=== PATIENT | female | born 1955 | race Caucasian/White ===

== ENCOUNTER → 2017-04-22 | Outpatient (CLI) | payer BC ==
--- NOTE | 2017-04-26 15:24 | US ---
EXAM DESCRIPTION: Breast,Bilateral: Ultrasound CLINICAL HISTORY: 61 yearsFemaleBREAST MASS. Painful on the right. Bilateral visible chest wall surgical changes after removal of the implants. COMPARISON: Digital 3-D/2-D diagnostic mammography, bilateral breasts this visit. TECHNIQUE: Transcutaneous scanning of the bilateral breasts utilizing two-dimensional and Doppler modes. Scanning performed by the non emergency services ambulance driver and Dr. Koenig. FINDINGS: In the right breast, is a oval-shaped elongated hypoechoic region of tissue with scalloped and peaked borders. Corresponds to region of palpable density heterogeneous signal in this tissue which is abutting the posterior wall, inferior to the posterior nipple line, and demonstrates posterior mixed echoes. Parallel orientation and minimally vascular. Overall dimensions 4.8 x 9 mm. No discrete cysts or calcifications. Similar appearing tissue at the 600 clock position of the left breast. As in the right breast, heterogeneous hypoechoic tissue with scalloped and peaked borders, parallel orientation, mixed posterior acoustic features and abutting the chest wall. Minimally vascular. No discrete cysts or calcifications. IMPRESSION: 1. Bi-Rads Category 3: Probably Benign Findings. 2. Please refer to bilateral 2-D and 3-D diagnostic breast mammographic examination and report on this visit. The FINDINGS and the follow-up plan were reviewed in person with the patient after the examination. Written communication explaining the IMPRESSION and follow-up will be mailed to the patient and referring care provider. Electronically signed by: Esteban Koenig MD 04/26/2017 3:23 PM [employer] [employer]
--- NOTE | 2017-04-26 15:25 | MAM ---
EXAM DESCRIPTION: 3D Diagnostic, Bilateral: Digital Mammography CLINICAL HISTORY: 61 yearsFemaleBREAST MASS . Painful mass in the right breast. Palpable. Ruptured breast implants 04/23/2016. No replacement. No family history of breast cancer. Postmenopausal. Has taken HRT 5 or more years ago.. COMPARISON: 2-D digital screening bilateral studies with implants, 02/11/2009.. No prior reports are available. TECHNIQUE: Bilateral CC LM MLO projection full-field images, 3-D tomosynthesis digital mammographic technique. Also bilateral synthesized CC MLO LM full-field images. CAD not utilized. 2-D digital spot compression MLO and CC projection posterior superior right breast. CAD utilized. FINDINGS: The breast parenchymal density pattern is: Heterogeneously dense breast tissue, which may obscure small masses. No skin thickening or nipple retraction solitary microcalcifications bilaterally. Right axillary lymph node. Skin marker on the undersurface of the retroareolar right breast at the 6:00 position. Large density with ill-defined border posterior third of the right breast, more inferior to the posterior nipple line. With compression, this material appears less dense and appears to enlarge. Minimal thickening of the inferior scans of the breast. Similar density tissue seen in the posterior third of the left breast also appearing inferior to the posterior nipple line. Occupies much smaller area in the left breast, more likely focal asymmetry. Minimal thickening of the inferior skin of the breast. ULTRASOUND: In the right breast, is a oval-shaped elongated hypoechoic region of tissue with scalloped and peaked borders. Corresponds to region of palpable density heterogeneous signal in this tissue which is abutting the posterior wall, inferior to the posterior nipple line, and demonstrates posterior mixed echoes. Parallel orientation and minimally vascular. Overall dimensions 4.8 x 9 mm. No discrete cysts or calcifications. Similar appearing tissue at the 600 clock position of the left breast. As in the right breast, heterogeneous hypoechoic tissue with scalloped and peaked borders, parallel orientation, mixed posterior acoustic features and abutting the chest wall. Minimally vascular. No discrete cysts or calcifications. IMPRESSION: BI-RADS CATEGORY: 3 - PROBABLY BENIGN. Management: Short interval (6-month) follow-up or continued surveillance. The FINDINGS and the follow-up plan were reviewed in person with the patient after the examination. Written communication explaining the IMPRESSION and follow-up will be mailed to the patient and referring care provider. Electronically signed by: Esteban Koenig MD 04/26/2017 3:24 PM MAKE UP EDITOR
== END ==
LOC: MAMMO 12:48
PROVIDERS: ATTEND Specialist
DX: N63.0 Unspecified lump in unspecified breast (principal)
CPT/HCPCS: 76641; G0204; G0279

== ENCOUNTER → 2017-12-02 | Outpatient (CLI) | payer BC ==
--- NOTE | 2017-12-03 10:02 | US ---
EXAM DESCRIPTION: Breast,Bilateral: Ultrasound CLINICAL HISTORY: 62 yearsFemale6 MONTH FOLLOW UP COMPARISON: Digital diagnostic mammogram bilateral breasts on the same visit. Prior ultrasound April 2017. TECHNIQUE: Transcutaneous scanning of the bilateral breasts utilizing buckley-scale and Doppler modes. Scanning performed by the dairy feed worker and Dr. Koenig. FINDINGS: Bilateral skin scarring noted again around the nipples. Scanning at the 600 clock position of the right breast 3 cm from the nipple. Well-defined circumscribed hypoechoic mass with parallel orientation and posterior enhancement features. Dimensions are 1.4 x 1.2 x 0.3 cm. Stable fibroadenoma. Scanning in the left axilla and axillary tail. Hypoechoic circumscribed mass parallel orientation and predominantly posterior acoustic features. Nonvascular. Central echogenicity and most likely a lymph node measuring 8 x 5 x 3 mm. Echogenic material with well-defined anterior borders taller than wide orientation and posterior shadowing features, most likely residual implant material. IMPRESSION: 1. Bi-Rads Category 2: Benign. 2. Please refer to bilateral digital diagnostic mammographic examination and report on this visit. The FINDINGS and the FOLLOW-UP plan were reviewed in person with the patient after the examination. Written communication explaining the IMPRESSION and FOLLOW-UP will be mailed to the patient and referring care provider. Electronically signed by: Esteban Koenig MD 12/03/2017 10:00 AM [facility]
--- NOTE | 2017-12-06 10:02 | MAM ---
EXAM DESCRIPTION: 3D Diagnostic, Bilateral: Digital Mammography CLINICAL HISTORY: 62 yearsFemale6 MONTHS FOLLOW UP bilateral breast implants with significant bilateral breasts scarring. Bilateral mass densities in focal asymmetries on prior mammogram examination with ultrasound demonstration of probably benign tissue. No complaints currently. Childbirth. Postmenopausal. Has previously taken hormone replacement. COMPARISON: Bilateral 3-D Lou synthesis diagnostic mammography 04/22/2017. Bilateral targeted breast ultrasound on the same date.. Bilateral targeted breast ultrasound following this examination. Reports from prior examinations also reviewed. TECHNIQUE: Bilateral CC LM MLO projection full-field images, 3-D tomosynthesis digital mammographic technique. CAD not utilized. FINDINGS: The breast parenchymal density pattern is: Heterogeneously dense breast tissue, which may obscure small masses. No skin thickening or nipple retraction bilateral vascular calcifications. Bilateral breast skin folds. Posterior construct tissue with asymmetry in the right breast similar findings in the left breast with radiodense material in the left axilla. Stable thickening in the right axilla and the left intramammary fold. Bilateral solitary microcalcifications. No new focal, stellate mass or density, focal asymmetry , and no suspicious microcalcifications bilaterally. Stable mammograms compared to prior study, taking into account differences in mammographic technique Ultrasound: Bilateral skin scarring noted again around the nipples on physical examination. Scanning at the 600 clock position of the right breast 3 cm from the nipple. Well-defined circumscribed hypoechoic mass with parallel orientation and posterior enhancement features. Dimensions are 1.4 x 1.2 x 0.3 cm. Stable fibroadenoma. Scanning in the left axilla and axillary tail. Hypoechoic circumscribed mass parallel orientation and predominantly posterior acoustic features. Nonvascular. Central echogenicity and most likely a lymph node measuring 8 x 5 x 3 mm. Echogenic material with well-defined anterior borders taller than wide orientation and posterior shadowing features, most likely residual implant material. IMPRESSION: BI-RADS CATEGORY: 2 - BENIGN FINDINGS. FOLLOW UP: Return to routine digital bilateral screening, one year interval from November 2017. Written communication explaining the IMPRESSION and follow-up, will be mailed to the patient and referring health care provider. According to the [employer], yearly mammograms are recommended starting at age 40 and continuing as long as a woman is in good health. Any breast change noted on a breast self-exam should be reported promptly to the patient's healthcare provider. Breast MRI is recommended for women with an approximately 20-25% or greater lifetime risk of breast cancer, including women with a strong family history of breast or ovarian cancer and women who have been treated for Hodgkin's disease. A negative mammographic report should not delay tissue diagnosis in patients with significant clinical history or physical findings. Extremely dense breast tissue limits the sensitivity of digital mammography. Electronically signed by: Esteban Koenig MD 12/06/2017 10:00 AM CDT
== END ==
LOC: MAMMO 13:53
PROVIDERS: ATTEND Specialist
DX: R92.8 Other abnormal and inconclusive findings on diagnostic imaging of breast (principal)
CPT/HCPCS: 76641; 77066; G0279